=== PATIENT | male | born 2000 | race Caucasian/White ===

== ENCOUNTER 2024-01-16 20:02 | Inpatient (IN) ==
[2024-01-16] MEDS: SODIUM CHLORIDE 0.9% 1,000 ML IV SCH (20:18)
--- NOTE | 2024-01-16 20:37 | Emergency Department Note ---
Impression & Plan DKA, type 1, Atypical chest pain, Nausea, Weakness ED Provider Note Provider: Christopher Estrada MD DATE OF SERVICE: 01/16/2024 CHIEF COMPLAINT: DKA, chest pain HISTORY OF PRESENT ILLNESS: Patient is a 23-year-old gentleman reported history of poorly controlled type 1 diabetes presenting here today complaining of experiencing DKA symptoms as well as experiencing some chest tightness this evening. States he was doing okay this morning. Drove up from [facility] earlier today. Did not have his insulin with him. Only a little bit to eat. Nausea and vomiting and notes his blood sugars are high. Unable to carry insulin locally. Began to experience some chest tightness was different. Has had multiple episodes of DKA in the past year by his report. No fevers. No leg swelling. Was a bit anxious and upset in triage and concern given his chest discomfort. No abdominal pain reported. PAST MEDICAL HISTORY: As noted above MEDICATIONS: Reviewed home medications includes insulin but not a pump SOCIAL HISTORY: Lives in [facility] PHYSICAL EXAM: GENERAL: alert and oriented on stretcher friend at bedside fatigued in appearance Head: normocephalic and atraumatic EYES: No injection, discharge or icterus. EOMI. NECK: Trachea midline. ENT: Mucous membranes pink and slightly dry LUNGS: Airway patent. No retractions. Breath sounds clear with good air entry bilaterally. HEART: Regular tachycardic rate and rhythm. No chest wall tenderness ABDOMEN: Soft and non-tender, without guarding or rebound. SKIN: Acyanotic, warm, dry, without rashes EXTREMITIES: Without swelling, tenderness or deformity in particular no calf swelling or tenderness NEUROLOGICAL: No focal deficits moving all extremity. No aphasia. No facial droop or slurred speech. EK bpm sinus tachycardia with right axis. Mildly peaked T waves. No acute ST segment elevation or depression with a QTc of 441. CONTINUOUS CARDIAC MONITORING: was ordered and showed a heart rate of 70s-120s bpm in normal sinus rhythm sinus tachycardia Patient's laboratory studies and imaging reviewed. Differential includes DKA, infection, dehydration, metabolic abnormality, hypo/hyperglycemia, electrolyte disturbance, anemia, hypoxia, cardiac sources/ACS, PE, neurologic, as well as other pathologies. IMPRESSION/MEDICAL DECISION MAKING: Patient appears to be in monty DKA with elevated blood sugar upon arrival. I- STAT obtained as well as VBG and lactate. EKG completed shows some tachycardia as well as may be some mildly peaked T waves but no priors for comparison. Little bit of chest discomfort. Did drive today but no clinical evidence of DVT on exam. Blood work troponin was completed as well as chest x-ray initially. IV fluid ordered as well as Zofran. I-STAT reports anion gap of 26 and a bicarb of 15. Creatinine normal on this and will send for CT of the chest to exclude PE given his atypical chest pain with presentation today, tachycardia/tachypnea, as well as significant several hour car ride today. Question DKA although VBG returns without significant acidosis pH of 7.39, CO2 of 26, bicarb of 16. Lactate elevated 4.0. Some question if this is still fairly early and the patient is compensating. No significant thrombocytopenia or anemia with leukocytosis of 15.2 notable. Pseudohyponatremia. Normal renal function. No transaminitis or evidence of hepatitis or pancreatitis. Urine negative for signs of infection but with ketones. Significant glucose elevation. Large anion gap. Seems consistent with DKA although not acidotic on his VBG. Continue with insulin drip after bolus as well as IV fluids. Recommend we monitor him overnight for resolution of the symptoms improvement of his fatigue/weakness and nausea. Not having active chest pain. He is in agreement. Hospitalist contacted. DIAGNOSIS: DKAhyperglycemia associated with type 1 diabetes, atypical chest pain, nausea DISPOSITION: Hospitalist will evaluate Patient was agreeable with this plan. Critical Care I have personally spent 35 minutes of critical care time in the direct management of this patient. This includes bedside care, interpretation of diagnostic studies, and testing, discussion with consultants, patient, and other required patient management activities. These 35 minutes is in excess of all separately billable procedures. Past Med/Surg History Social History Smoking Status: Never smoker Preferred Language: Khmer Feels Safe at Home: Yes Allergies Allergies Allergy/AdvReac Type Severity Reaction Status Date / Time No Known Allergies Allergy Unverified 01/16/24 20:35 Home Meds Home Medications Medication Instructions Recorded Confirmed insulin aspart U-100 100 unit/mL 16 unit subcut TIDWMEAL 01/16/24 01/16/24 subcutaneous solution (Novolog U-100 Insulin aspart) insulin degludec 100 unit/mL (3 45 unit subcut HS 01/16/24 01/16/24 mL) subcutaneous pen (Tresiba FlexTouch U-100 insulin) Results & Data (ED) Vital Signs Vital Signs - 24 hr 01/16/24 20:05 01/16/24 20:24 01/16/24 20:35 Temperature 36.8 C Temperature Source Temporal Artery Scan Pulse Rate 134 H 73 Pulse Rhythm Regular Pulse Strength Normal Respiratory Rate 18 Respiratory Effort / Characteristics Non-Labored Spontaneous Respiratory Depth Normal Respiratory Pattern Regular Blood Pressure 125/83 Blood Pressure Mean 97 Blood Pressure Position Sitting Pulse Oximetry 94 Oxygen Delivery Method Room Air Room Air Oxygen Flow Rate 98 Sepsis Recent Fever Within 48 Hours No Sepsis New/Unexplained Change in Mental Status N/A Sepsis Action Taken by Nursing No Action Required Laboratory Data 01/16/24 20:22 01/16/24 20:22 Lab Results 01/16/24 01/16/24 01/16/24 Range/Units 20:14 20:15 20:22 WBC 15.22 H (4.8-10.8) K/ul RBC 5.64 (4.70-6.10) M/uL Hgb 16.6 (14.0-18.0) g/dl POC Hgb (14.0-18.0) g/dl Hct 46.9 (42.0-52.0) % POC Hct (42-52) % MCV 83.2 (80.0-100.0) fL MCH 29.4 (25.0-34.0) pg MCHC 35.4 (32.0-36.0) g/dL RDW Std Deviation 35.2 L (36.4-46.3) fL RDW Coeff of Yuriy 11.7 (11.5-14.5) % Plt Count 302 (130-400) K/uL MPV 12.1 (9.4-12.4) fL Immature Gran % (Auto) 0.5 % Neut % (Auto) 74.0 % Lymph % (Auto) 19.8 % Cass % (Auto) 4.1 % Eos % (Auto) 1.1 % Baso % (Auto) 0.5 % Neut # (Auto) 11.26 H (1.40-6.50) K/uL Lymph # (Auto) 3.02 (1.20-3.40) K/uL Cass # (Auto) 0.63 H (0.11-0.59) K/uL Eos # (Auto) 0.17 (0.00-0.50) K/uL Baso # (Auto) 0.07 (0.00-0.20) K/uL Immature Gran # (Auto) 0.07 (0.01-0.20) K/uL PT 10.3 (9.0-12.0) Seconds INR 0.9 (0.9-1.1) APTT 21 (21-31) Seconds PTT Ratio 0.8 VBG pH (7.36-7.41) VBG pCO2 (38-50) mmHg VBG pO2 mmHg VBG HCO3 mmol/L VBG O2 Saturation % VBG Base Excess mEq/L POC Sodium (135-144) mmol/L Sodium 131 L (136-145) mmol/L POC Potassium (3.3-5.0) mmol/L Potassium 4.0 (3.5-5.1) mmol/L POC Chloride (101-112) mmol/L Chloride 88 L (98-107) mmol/L Carbon Dioxide 15 L (21-32) mmol/L POC Total CO2 (24-31) mmol/L Anion Gap 28 H (3-11) POC Anion Gap (16-25) mmol/L POC BUN (7-18) mg/dl BUN 18 (6-23) mg/dl Creatinine 1.08 (0.6-1.4) mg/dl POC Creatinine (0.6-1.3) mg/dl Est Cr Clr Drug Dosing 116.2 ml/min Est GFR ( Amer) 112.3 ml/min Est GFR (Non-Af Amer) 96.9 ml/min BUN/Creatinine Ratio 16.7 (10-20) Glucose 657 H* (70-99(Fasting)) mg/dl POC Glucose > 600 H* 590 H* (70-99) mg/dl POC Glucose (other) (70-99) mg/dl Estimat Average Glucose 258 mg/dl Hemoglobin A1c 10.6 H (4.5-5.6) % Lactate (0.4-2.0) mmol/L Calcium 9.7 (8.6-10.3) mg/dl POC Ioniz Calcium Karyn (1.12-1.32) mmol/l Magnesium 1.7 (1.7-2.4) mg/dl Total Bilirubin 1.0 (0.2-1.0) mg/dl AST 16 (13-39) U/L ALT 19 (7-52) U/L Alkaline Phosphatase 105 H (34-104) U/L Troponin I High Sens 2.4 (0-20) pg/ml Total Protein 7.4 (6.0-8.3) gm/dl Albumin 4.5 (3.4-5.0) gm/dl Globulin 2.9 (2.5-4.0) gm/dl Albumin/Globulin Ratio 1.6 (0.9-2) Lipase 17 (11-82) U/L Urine Color Urine Appearance (Clear) Urine pH (4.5-7.5) Ur Specific [place] (1.000-1.030) Urine Protein (Negative) Urine Glucose (UA) (Negative) Urine Ketones (Negative) Urine Blood (Negative) Urine Nitrite (Negative) Urine Bilirubin (Negative) Urine Urobilinogen (Negative) Ur Leukocyte Esterase (Negative) 01/16/24 01/16/24 01/16/24 Range/Units 20:37 20:41 20:51 WBC (4.8-10.8) K/ul RBC (4.70-6.10) M/uL Hgb (14.0-18.0) g/dl POC Hgb 15.3 (14.0-18.0) g/dl Hct (42.0-52.0) % POC Hct 45 (42-52) % MCV (80.0-100.0) fL MCH (25.0-34.0) pg MCHC (32.0-36.0) g/dL RDW Std Deviation (36.4-46.3) fL RDW Coeff of Yuriy (11.5-14.5) % Plt Count (130-400) K/uL MPV (9.4-12.4) fL Immature Gran % (Auto) % Neut % (Auto) % Lymph % (Auto) % Cass % (Auto) % Eos % (Auto) % Baso % (Auto) % Neut # (Auto) (1.40-6.50) K/uL Lymph # (Auto) (1.20-3.40) K/uL Cass # (Auto) (0.11-0.59) K/uL Eos # (Auto) (0.00-0.50) K/uL Baso # (Auto) (0.00-0.20) K/uL Immature Gran # (Auto) (0.01-0.20) K/uL PT (9.0-12.0) Seconds INR (0.9-1.1) APTT (21-31) Seconds PTT Ratio VBG pH 7.39 (7.36-7.41) VBG pCO2 26 L (38-50) mmHg VBG pO2 41 mmHg VBG HCO3 16 mmol/L VBG O2 Saturation 72.9 % VBG Base Excess -7.6 mEq/L POC Sodium 131 L (135-144) mmol/L Sodium (136-145) mmol/L POC Potassium 4.0 (3.3-5.0) mmol/L Potassium (3.5-5.1) mmol/L POC Chloride 94 L (101-112) mmol/L Chloride (98-107) mmol/L Carbon Dioxide (21-32) mmol/L POC Total CO2 15 L (24-31) mmol/L Anion Gap (3-11) POC Anion Gap 26.0 H (16-25) mmol/L POC BUN 17 (7-18) mg/dl BUN (6-23) mg/dl Creatinine (0.6-1.4) mg/dl POC Creatinine 0.8 (0.6-1.3) mg/dl Est Cr Clr Drug Dosing ml/min Est GFR ( Amer) ml/min Est GFR (Non-Af Amer) ml/min BUN/Creatinine Ratio (10-20) Glucose (70-99(Fasting)) mg/dl POC Glucose (70-99) mg/dl POC Glucose (other) 621 H* (70-99) mg/dl Estimat Average Glucose mg/dl Hemoglobin A1c (4.5-5.6) % Lactate 4.0 H* (0.4-2.0) mmol/L Calcium (8.6-10.3) mg/dl POC Ioniz Calcium Karyn 1.07 L (1.12-1.32) mmol/l Magnesium (1.7-2.4) mg/dl Total Bilirubin (0.2-1.0) mg/dl AST (13-39) U/L ALT (7-52) U/L Alkaline Phosphatase (34-104) U/L Troponin I High Sens (0-20) pg/ml Total Protein (6.0-8.3) gm/dl Albumin (3.4-5.0) gm/dl Globulin (2.5-4.0) gm/dl Albumin/Globulin Ratio (0.9-2) Lipase (11-82) U/L Urine Color Yellow Urine Appearance Clear (Clear) Urine pH 5.5 (4.5-7.5) Ur Specific [place] 1.030 (1.000-1.030) Urine Protein Negative (Negative) Urine Glucose (UA) 3+ H (Negative) Urine Ketones 4+ H (Negative) Urine Blood Negative (Negative) Urine Nitrite Negative (Negative) Urine Bilirubin Negative (Negative) Urine Urobilinogen Negative (Negative) Ur Leukocyte Esterase Negative (Negative) 01/16/24 Range/Units 22:10 WBC (4.8-10.8) K/ul RBC (4.70-6.10) M/uL Hgb (14.0-18.0) g/dl POC Hgb (14.0-18.0) g/dl Hct (42.0-52.0) % POC Hct (42-52) % MCV (80.0-100.0) fL MCH (25.0-34.0) pg MCHC (32.0-36.0) g/dL RDW Std Deviation (36.4-46.3) fL RDW Coeff of Yuriy (11.5-14.5) % Plt Count (130-400) K/uL MPV (9.4-12.4) fL Immature Gran % (Auto) % Neut % (Auto) % Lymph % (Auto) % Cass % (Auto) % Eos % (Auto) % Baso % (Auto) % Neut # (Auto) (1.40-6.50) K/uL Lymph # (Auto) (1.20-3.40) K/uL Cass # (Auto) (0.11-0.59) K/uL Eos # (Auto) (0.00-0.50) K/uL Baso # (Auto) (0.00-0.20) K/uL Immature Gran # (Auto) (0.01-0.20) K/uL PT (9.0-12.0) Seconds INR (0.9-1.1) APTT (21-31) Seconds PTT Ratio VBG pH (7.36-7.41) VBG pCO2 (38-50) mmHg VBG pO2 mmHg VBG HCO3 mmol/L VBG O2 Saturation % VBG Base Excess mEq/L POC Sodium (135-144) mmol/L Sodium (136-145) mmol/L POC Potassium (3.3-5.0) mmol/L Potassium (3.5-5.1) mmol/L POC Chloride (101-112) mmol/L Chloride (98-107) mmol/L Carbon Dioxide (21-32) mmol/L POC Total CO2 (24-31) mmol/L Anion Gap (3-11) POC Anion Gap (16-25) mmol/L POC BUN (7-18) mg/dl BUN (6-23) mg/dl Creatinine (0.6-1.4) mg/dl POC Creatinine (0.6-1.3) mg/dl Est Cr Clr Drug Dosing ml/min Est GFR ( Amer) ml/min Est GFR (Non-Af Amer) ml/min BUN/Creatinine Ratio (10-20) Glucose (70-99(Fasting)) mg/dl POC Glucose 561 H* (70-99) mg/dl POC Glucose (other) (70-99) mg/dl Estimat Average Glucose mg/dl Hemoglobin A1c (4.5-5.6) % Lactate (0.4-2.0) mmol/L Calcium (8.6-10.3) mg/dl POC Ioniz Calcium Karyn (1.12-1.32) mmol/l Magnesium (1.7-2.4) mg/dl Total Bilirubin (0.2-1.0) mg/dl AST (13-39) U/L ALT (7-52) U/L Alkaline Phosphatase (34-104) U/L Troponin I High Sens (0-20) pg/ml Total Protein (6.0-8.3) gm/dl Albumin (3.4-5.0) gm/dl Globulin (2.5-4.0) gm/dl Albumin/Globulin Ratio (0.9-2) Lipase (11-82) U/L Urine Color Urine Appearance (Clear) Urine pH (4.5-7.5) Ur Specific [place] (1.000-1.030) Urine Protein (Negative) Urine Glucose (UA) (Negative) Urine Ketones (Negative) Urine Blood (Negative) Urine Nitrite (Negative) Urine Bilirubin (Negative) Urine Urobilinogen (Negative) Ur Leukocyte Esterase (Negative) Administered Medications Insulin Human Regular 250 (units/ Sodium Chloride) 250 mls @ 10.2 mls/hr IV .Q24H GARY; Protocol Stop: 02/15/24 20:59 Last Titration: 01/16/24 22:12 Dose: 10.2 units/hr, 10.2 mls/hr Documented By: CALLIE Co-signed By: RUFINA Admin: 01/16/24 21:15 Dose: 8.5 units/hr, 8.5 mls/hr Documented By: CALLIE Co-signed By: STEF Parenteral Electrolytes (Plasma-Lyte A Ph 7.4) 1,000 mls @ 500 mls/hr IV .Q2H ONE Stop: 01/17/24 00:08 Last Admin: 01/16/24 22:18 Dose: 500 mls/hr Documented By: CALLIE Insulin Aspart (Insulin Aspart Per Unit Charge) 0 units SC ACHS GARY Stop: 02/15/24 20:59 Last Admin: 01/16/24 21:32 Dose: Not Given Documented By: CALLIE Co-signed By: JASMIN Discontinued Medications Sodium Chloride (Nss) 1,000 mls @ 999 mls/hr IV .Q1H1M GARY Stop: 01/16/24 21:30 Last Infusion: 01/16/24 21:19 Dose: Infused Documented By: Admin: 01/16/24 20:18 Dose: 999 mls/hr Documented By: JASMIN Parenteral Electrolytes (Plasma-Lyte A Ph 7.4) 1,000 mls @ 125 mls/hr IV .Q8H GARY Stop: 02/15/24 20:44 Last Infusion: 01/16/24 22:18 Dose: Infused Documented By: Admin: 01/16/24 21:03 Dose: 125 mls/hr Documented By: CALLIE Lactated Ringer's (Lr) 1,000 mls @ 999 mls/hr IV .Q1H1M ONE Stop: 01/16/24 21:44 Last Infusion: 01/16/24 22:07 Dose: Infused Documented By: Admin: 01/16/24 21:03 Dose: 999 mls/hr Documented By: CALLIE Ioversol (Optiray 320 125ml) 116 ml IV ONCE ONE Stop: 01/16/24 21:03 Last Admin: 01/16/24 21:02 Dose: 116 ml Documented By: JULIANA Miscellaneous (Stat Iv Infusion Titration Per Protocol) 1 each N/A NOW STA Stop: 01/16/24 20:45 Last Admin: 01/16/24 21:32 Dose: Not Given Documented By: CALLIE Ondansetron HCl (Ondansetron Inj 2 Mg/Ml 2 Ml Vial) 4 mg IV NOW STA Stop: 01/16/24 20:35 Last Admin: 01/16/24 20:50 Dose: 4 mg Documented By: CALLIE Imaging Data Radiologist's Impression: Chest CTA 01/16/24 20:44 Exam(s): CTA CHEST IV Amt: 116ml optiray 320 EXAM: CT Angiography Chest With Intravenous Contrast CLINICAL HISTORY: Reason for exam: PE, travel, CP, DKA/tachy. TECHNIQUE: Axial computed tomographic angiography images of the chest with intravenous contrast. CTDI is 23 mGy and DLP is 503.9 mGy-cm. Automated exposure control was utilized for the study. A dose lowering technique was utilized adhering to the principles of ALARA. MIP reconstructed images were created and reviewed. COMPARISON: No relevant prior studies available. FINDINGS: Pulmonary arteries: Unremarkable. No pulmonary embolism. Aorta: No acute findings. No thoracic aortic aneurysm. Lungs: Unremarkable. No mass. No consolidation. Pleural space: Unremarkable. No significant effusion. No pneumothorax. Heart: Unremarkable. No cardiomegaly. No significant pericardial effusion. No evidence of RV dysfunction. Bones/joints: No acute fracture. No dislocation. Soft tissues: Unremarkable. Lymph nodes: Unremarkable. No enlarged lymph nodes. IMPRESSION: Normal chest CTA. No pulmonary embolism. Electronically signed by: Henry Najera MD 01/16/24 21:17 PM Discharge Plan Visit Data Chief Complaint: Shortness of Breath/Dyspnea Stated Complaint: SOB, NAUSEA/VOMITING, DKA, HIGH BLOOD SUGAR ED Provider: Christopher Estrada Discharge Problem: DKA, type 1, Atypical chest pain, Nausea, Weakness Patient Disposition: Being Evaluated by Hospitalist Forms Stand Alone Forms: [facility] [employer] Prescriptions Prescriptions: No Action insulin aspart U-100 [Novolog U-100 Insulin aspart] 100 unit/mL Solution 16 unit SUBCUT TIDWMEAL insulin degludec [Tresiba FlexTouch U-100] 100 unit/mL (3 mL) Insulin Pen 45 unit subcut HS Rx Instructions: non compliant Referrals Referrals: PCP,NO [Primary Care Provider] -
[2024-01-16 20:44] LABS: Base Excess VBG -7.6 mEq/L; HCO3 VBG 16 mmol/L; Oxygen Saturation VBG 72.9 %; PCO2 VBG 26 mmHg (38-50); PO2 VBG 41 mmHg; pH VBG 7.39 (7.36-7.41)
[2024-01-16] MEDS ORDERED: GLUCOSE 40% GEL 15 GM TUBE PO PRN (20:44)
[2024-01-16] MEDS ORDERED: CARBOHYDRATES FOR HYPOGLYCEMIA PO PRN (20:44)
[2024-01-16] MEDS ORDERED: GLUCOSE 10 TAB/TUBE PO PRN (20:44)
[2024-01-16] MEDS ORDERED: DEXTROSE 50% 50 ML SYRINGE IV PRN (20:44)
[2024-01-16] MEDS ORDERED: GLUCAGON FOR INJ 1 MG VIAL SQ PRN (20:44)
[2024-01-16] MEDS ORDERED: INSULIN REGULAR 250 UNITS in SODIUM CHLORIDE 0.9% 247.5 ML IV SCH (20:45)
[2024-01-16] MEDS: ONDANSETRON INJ 2 MG/ML 2 ML VIAL IV STA (20:50)
[2024-01-16 20:56] LABS: iSTAT Creatinine 0.8 mg/dl (0.6-1.3); iSTAT Hemoglobin 15.3 g/dl (14.0-18.0); iSTAT Ionized Calcium 1.07 mmol/l (1.12-1.32)
[2024-01-16 20:57] LABS: Basophils # (auto) 0.07 K/uL (0.00-0.20); Basophils % (auto) 0.5 %; Eosinophils # (auto) 0.17 K/uL (0.00-0.50); Eosinophils % (auto) 1.1 %; Hematocrit (blood only) 46.9 % (42.0-52.0); Hemoglobin 16.6 g/dl (14.0-18.0); Immature Granulocytes # (auto) 0.07 K/uL (0.01-0.20); Immature Granulocytes % (auto) 0.5 %; Lymphocytes # (auto) 3.02 K/uL (1.20-3.40); Lymphocytes % (auto) 19.8 %; Mean Corpuscular Hemoglobin 29.4 pg (25.0-34.0); Mean Corpuscular Hgb Conc 35.4 g/dL (32.0-36.0); Mean Corpuscular Volume 83.2 fL (80.0-100.0); Mean Platelet Volume 12.1 fL (9.4-12.4); Monocytes # (auto) 0.63 K/uL (0.11-0.59); Monocytes % (auto) 4.1 %; Neutrophils # (auto) 11.26 K/uL (1.40-6.50); Platelet Count 302 K/uL (130-400); RDW Coefficient of Variation 11.7 % (11.5-14.5); RDW Standard Deviation 35.2 fL (36.4-46.3); Red Blood Count 5.64 M/uL (4.70-6.10); White Blood Count 15.22 K/ul (4.8-10.8)
[2024-01-16 21:02] LABS: INR 0.9 (0.9-1.1); Partial Thromboplastin Ratio 0.8; Partial Thromboplastin Time 21 Seconds (21-31); Prothrombin Time 10.3 Seconds (9.0-12.0)
[2024-01-16] MEDS: OPTIRAY 320 125ml IV ONE (21:02)
[2024-01-16] MEDS: LACTATED RINGER'S 1,000 ML IV ONE (21:03)
[2024-01-16] MEDS: PLASMA-LYTE A 1,000 ML IV SCH (21:03)
[2024-01-16] MEDS: INSULIN REGULAR 250 UNITS in SODIUM CHLORIDE 0.9% 247.5 ML IV SCH (21:15)
--- NOTE | 2024-01-16 21:18 | CT Scan Report ---
Exam(s): CTA CHEST IV Amt: 116ml optiray 320 EXAM: CT Angiography Chest With Intravenous Contrast CLINICAL HISTORY: Reason for exam: PE, travel, CP, DKA/tachy. TECHNIQUE: Axial computed tomographic angiography images of the chest with intravenous contrast. CTDI is 23 mGy and DLP is 503.9 mGy-cm. Automated exposure control was utilized for the study. A dose lowering technique was utilized adhering to the principles of ALARA. MIP reconstructed images were created and reviewed. COMPARISON: No relevant prior studies available. FINDINGS: Pulmonary arteries: Unremarkable. No pulmonary embolism. Aorta: No acute findings. No thoracic aortic aneurysm. Lungs: Unremarkable. No mass. No consolidation. Pleural space: Unremarkable. No significant effusion. No pneumothorax. Heart: Unremarkable. No cardiomegaly. No significant pericardial effusion. No evidence of RV dysfunction. Bones/joints: No acute fracture. No dislocation. Soft tissues: Unremarkable. Lymph nodes: Unremarkable. No enlarged lymph nodes. IMPRESSION: Normal chest CTA. No pulmonary embolism. Electronically signed by: Henry Najera MD 01/16/24 21:17 PM
[2024-01-16 21:21] LABS: Albumin Globulin Ratio 1.6 (0.9-2); Albumin Level 4.5 gm/dl (3.4-5.0); BUN Creatinine Ratio 16.7 (10-20); Calcium 9.7 mg/dl (8.6-10.3); Creatinine Clr Calc Pharmacy 116.2 ml/min; Est GFR (African American) 112.3 ml/min; Est GFR (Non-African American) 96.9 ml/min; Globulin 2.9 gm/dl (2.5-4.0); Magnesium 1.7 mg/dl (1.7-2.4); Total Protein 7.4 gm/dl (6.0-8.3); Troponin I High Sensitivity 2.4 pg/ml (0-20)
[2024-01-16] MEDS: STAT IV Infusion **Titration per Protocol STA (21:32)
[2024-01-16] MEDS: INSULIN ASPART PER UNIT CHARGE SC SCH (21:32)
[2024-01-16 21:50] LABS: Appearance Urine Clear (Clear); Bilirubin Urine Negative (Negative); Blood Urine Negative (Negative); Color Urine Yellow; Glucose Urine UA 3+ (Negative); Ketones Urine 4+ (Negative); Leukocyte Esterase Urine Negative (Negative); Nitrite Urine Negative (Negative); Protein Urine Negative (Negative); Urobilinogen Urine Negative (Negative); pH Urine 5.5 (4.5-7.5)
[2024-01-16] MEDS: PLASMA-LYTE A 1,000 ML IV ONE (22:18)
[2024-01-16 22:23] LABS: Estimated Average Glucose 258 mg/dl; Hemoglobin A1C 10.6 % (4.5-5.6)
--- NOTE | 2024-01-16 23:19 | History & Physical Report ---
Date of Service January 16, 2024 Assessment & Plan (1) Hyperglycemic crisis in diabetes mellitus: Plan: HHS/DKA combo History DM1 Medication noncompliance Suboptimal control as of today's hemoglobin A1c of 10.6. Atypical chest pain likely secondary to tachycardia from illness ADHD stable off medications. Ongoing vape use Medical telemetry IVF, IV insulin Diabetic education TTE Re: Chest pain DVT prophylaxis. Lovenox subcu Full code Text document was generated using [employer] voice recognition software. It may contain grammatical or spelling errors. Kindly contact undersigned for clarification of any documentation item in question. History of Present Illness Chief Complaint: Nausea, vomiting, chest pain Primary Care Provider: Dr. Panda from [place], [place] History obtained from patient, family, and records. Medical history significant for DM1, ADHD, ongoing vape use. 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 Patient diagnosed to have type I DM since age 5. Last hemoglobin A1c last month possibly 10 as per patient. Home BSGs 100-300s as per patient. Last confinement for DKA last year. Patient forgot to bring home insulin and supplies when he traveled to [place] to machine operator hop picker his girlfriend. Patient later felt sick with nausea symptoms. Symptoms similar to DKA attacks as per patient. Palpitations with chest pain going to his back. No fever, no chills. Patient had emesis upon arrival at the ER. IV insulin and IVF administered at the ER with initial BG of 600s. Patient currently comfortable. Medical History as above Surgical History : Dental surgery Family History : DM Personal/Social history : Ongoing vape use, occasional intake, restaurant employee Allergies Allergy/AdvReac Type Severity Reaction Status Date / Time No Known Allergies Allergy Unverified 01/16/24 20:35 Home Medications Medication Instructions Recorded Confirmed Type insulin aspart U-100 100 unit/mL 16 unit subcut TIDWMEAL 01/16/24 01/16/24 History subcutaneous solution (Novolog U-100 Insulin aspart) insulin degludec 100 unit/mL (3 45 unit subcut HS 01/16/24 01/16/24 History mL) subcutaneous pen (Tresiba FlexTouch U-100 insulin) Past Med/Surg History Social History Smoking Status: Never smoker Preferred Language: Pakistani Communication Ability: Effective Lands Resource Manager Required: No Beliefs That Will Affect Care: None Current Living Situation: Spouse Other Information That Helps Us Care for You: No Feels Safe at Home: Yes Safety Concerns: Feels Safe At This Time Review of Systems Review of Systems: As per HPI, all other systems reviewed and negative Physical Exam Physical Exam: GENERAL: Comfortable, pleasant, no respiratory distress SKIN: Normal color, warm HEENT: [place] palpebral conjunctivae, no ptosis, dry buccal mucosa NECK : Supple, no tenderness CHEST : CTA, no tenderness HEART : RRR, no obvious murmurs ABDOMEN: Some distention, nontender EXTREMITIES : No LE swelling/tenderness, no other conspicuous deformities noted NEUROLOGIC : Coherent, no facial asymmetry, no other gross focality Results & Data Results & Data Vital Signs (Past 12 Hours) Vital Signs Temp Pulse Resp BP Pulse Ox O2 Del Method O2 Flow Rate 01/16/24 22:30 88 23 132/67 99 01/16/24 20:35 Room Air 98 01/16/24 20:24 77 18 122/52 L 98 01/16/24 20:24 73 01/16/24 20:05 36.8 C 134 H 18 125/83 94 Room Air Laboratory Results Laboratory Results WBC 15.22 K/ul (4.8-10.8) H 01/16/24 20:22 RBC 5.64 M/uL (4.70-6.10) 01/16/24 20:22 Hgb 16.6 g/dl (14.0-18.0) 01/16/24 20:22 POC Hgb 15.3 g/dl (14.0-18.0) 01/16/24 20:41 Hct 46.9 % (42.0-52.0) 01/16/24 20:22 POC Hct 45 % (42-52) 01/16/24 20:41 MCV 83.2 fL (80.0-100.0) 01/16/24 20:22 MCH 29.4 pg (25.0-34.0) 01/16/24 20:22 MCHC 35.4 g/dL (32.0-36.0) 01/16/24 20: RDW Std Deviation 35.2 fL (36.4-46.3) L 01/16/24 20: RDW Coeff of Yuriy 11.7 % (11.5-14.5) 01/16/24 20: Plt Count 302 K/uL (130-400) 01/16/24 20:22 MPV 12.1 fL (9.4-12.4) 01/16/24 20:22 Immature Gran % (Auto) 0.5 % 01/16/24 20: Neut % (Auto) 74.0 % 01/16/24 20:22 Lymph % (Auto) 19.8 % 01/16/24 20:22 [place] % (Auto) 4.1 % 01/16/24 20:22 Eos % (Auto) 1.1 % 01/16/24 20:22 Baso % (Auto) 0.5 % 01/16/24 20: Neut # (Auto) 11.26 K/uL (1.40-6.50) H 01/16/24 20: Lymph # (Auto) 3.02 K/uL (1.20-3.40) 01/16/24 20:22 [place] # (Auto) 0.63 K/uL (0.11-0.59) H 01/16/24 20:22 Eos # (Auto) 0.17 K/uL (0.00-0.50) 01/16/24 20:22 Baso # (Auto) 0.07 K/uL (0.00-0.20) 01/16/24 20: Immature Gran # (Auto) 0.07 K/uL (0.01-0.20) 01/16/24 20: PT 10.3 Seconds (9.0-12.0) 01/16/24 20: INR 0.9 (0.9-1.1) 01/16/24 20: APTT 21 Seconds (21-31) 01/16/24 20: PTT Ratio 0.8 01/16/24: VBG pH 7.39 (7.36-7.41) 01/16/24 20:37 VBG pCO2 26 mmHg (38-50) L 01/16/24 20:37 VBG pO2 41 mmHg 01/16/24 20:37 VBG HCO3 16 mmol/L 01/16/24 20:37 VBG O2 Saturation 72.9 % 01/16/24 20: VBG Base Excess -7.6 mEq/L 01/16/24 20:37 POC Sodium 131 mmol/L (135-144) L 01/16/24 20:41 Sodium 131 mmol/L (136-145) L 01/16/24 20:22 POC Potassium 4.0 mmol/L (3.3-5.0) 01/16/24 20:41 Potassium 4.0 mmol/L (3.5-5.1) 01/16/24 20:22 POC Chloride 94 mmol/L (101-112) L 01/16/24 20:41 Chloride 88 mmol/L (98-107) L 01/16/24 20:22 Carbon Dioxide 15 mmol/L (21-32) L 01/16/24 20:22 POC Total CO2 15 mmol/L (24-31) L 01/16/24 20:41 Anion Gap 28 (3-11) H 01/16/24 20:22 POC Anion Gap 26.0 mmol/L (16-25) H 01/16/24 20:41 POC BUN 17 mg/dl (7-18) 01/16/24 20:41 BUN 18 mg/dl (6-23) 01/16/24 20:22 Creatinine 1.08 mg/dl (0.6-1.4) 01/16/24 20:22 POC Creatinine 0.8 mg/dl (0.6-1.3) 01/16/24 20:41 Est Cr Clr Drug Dosing 116.2 ml/min 01/16/24 20:22 Est GFR ( Amer) 112.3 ml/min 01/16/24 20:22 Est GFR (Non-Af Amer) 96.9 ml/min 01/16/24 20:22 BUN/Creatinine Ratio 16.7 (10-20) 01/16/24 20:22 Glucose 657 mg/dl (70-99(Fasting)) H* 01/16/24 20:22 POC Glucose 374 mg/dl (70-99) H* 01/16/24 23:11 POC Glucose (other) 621 mg/dl (70-99) H* 01/16/24 20:41 Estimat Average Glucose 258 mg/dl 01/16/24 20:22 Hemoglobin A1c 10.6 % (4.5-5.6) H 01/16/24 20:22 Lactate 2.3 mmol/L (0.4-2.0) H* 01/16/24 22:24 Calcium 9.7 mg/dl (8.6-10.3) 01/16/24 20:22 POC Ioniz Calcium Karyn 1.07 mmol/l (1.12-1.32) L 01/16/24 20:41 Magnesium 1.7 mg/dl (1.7-2.4) 01/16/24 20:22 Total Bilirubin 1.0 mg/dl (0.2-1.0) 01/16/24 20:22 AST 16 U/L (13-39) 01/16/24 20:22 ALT 19 U/L (7-52) 01/16/24 20:22 Alkaline Phosphatase 105 U/L (34-104) H 01/16/24 20:22 Troponin I High Sens 2.4 pg/ml (0-20) 01/16/24 20:22 Total Protein 7.4 gm/dl (6.0-8.3) 01/16/24 20:22 Albumin 4.5 gm/dl (3.4-5.0) 01/16/24 20:22 Globulin 2.9 gm/dl (2.5-4.0) 01/16/24 20:22 Albumin/Globulin Ratio 1.6 (0.9-2) 01/16/24 20:22 Lipase 17 U/L (11-82) 01/16/24 20:22 Procalcitonin < 0.02 ng/ml (0-0.5) 01/16/24 20:22 Urine Color Yellow 01/16/24 20:51 Urine Appearance Clear (Clear) 01/16/24 20:51 Urine pH 5.5 (4.5-7.5) 01/16/24 20:51 Ur Specific [place] 1.030 (1.000-1.030) 01/16/24 20:51 Urine Protein Negative (Negative) 01/16/24 20:51 Urine Glucose (UA) 3+ (Negative) H 01/16/24 20:51 Urine Ketones 4+ (Negative) H 01/16/24 20:51 Urine Blood Negative (Negative) 01/16/24 20:51 Urine Nitrite Negative (Negative) 01/16/24 20:51 Urine Bilirubin Negative (Negative) 01/16/24 20:51 Urine Urobilinogen Negative (Negative) 01/16/24 20:51 Ur Leukocyte Esterase Negative (Negative) 01/16/24 20:51 Impressions Chest CTA 01/16/24 20:44 Exam(s): CTA CHEST IV Amt: 116ml optiray 320 EXAM: CT Angiography Chest With Intravenous Contrast CLINICAL HISTORY: Reason for exam: PE, travel, CP, DKA/tachy. TECHNIQUE: Axial computed tomographic angiography images of the chest with intravenous contrast. CTDI is 23 mGy and DLP is 503.9 mGy-cm. Automated exposure control was utilized for the study. A dose lowering technique was utilized adhering to the principles of ALARA. MIP reconstructed images were created and reviewed. COMPARISON: No relevant prior studies available. FINDINGS: Pulmonary arteries: Unremarkable. No pulmonary embolism. Aorta: No acute findings. No thoracic aortic aneurysm. Lungs: Unremarkable. No mass. No consolidation. Pleural space: Unremarkable. No significant effusion. No pneumothorax. Heart: Unremarkable. No cardiomegaly. No significant pericardial effusion. No evidence of RV dysfunction. Bones/joints: No acute fracture. No dislocation. Soft tissues: Unremarkable. Lymph nodes: Unremarkable. No enlarged lymph nodes. IMPRESSION: Normal chest CTA. No pulmonary embolism. Electronically signed by: Henry Najera MD 01/16/24 21:17 PM Diagnostic Findings EKG as per my interpretation : Rate 110, sinus tachycardia, RAD, no ischemia
[2024-01-16] MEDS ORDERED: oxyCODONE HCL IR 5 MG TAB (IMMEDIATE RELEASE) PO PRN (23:21)
[2024-01-16] MEDS ORDERED: PROMETHAZINE HCL 6.25 MG in SODIUM CHLORIDE 0.9% 50 ML IV PRN (23:21)
[2024-01-16] MEDS ORDERED: ACETAMINOPHEN 325 MG TAB PO PRN (23:21)
[2024-01-16] MEDS ORDERED: LORazepam 0.5 MG TAB PO PRN (23:21)
[2024-01-17] MEDS: POTASSIUM CHLORIDE 20 MEQ in LACTATED RINGER'S 1,000 ML IV ONE ×2 (00:04→04:58)
[2024-01-17 01:27] LABS: Anion Gap 13 (3-11); BUN Creatinine Ratio 18.7 (10-20); Blood Urea Nitrogen 14 mg/dl (6-23); Calcium 8.8 mg/dl (8.6-10.3); Carbon Dioxide 23 mmol/L (21-32); Chloride 97 mmol/L (98-107); Creatinine Clr Calc Pharmacy 167.3 ml/min; Est GFR (African American) > 150.0 ml/min; Est GFR (Non-African American) 130.2 ml/min; Glucose 272 mg/dl (70-99(Fasting)); Potassium 3.6 mmol/L (3.5-5.1); Sodium 133 mmol/L (136-145)
[2024-01-17 01:35] LABS: Troponin I High Sensitivity < 2.3 pg/ml (0-20)
[2024-01-17] MEDS: LANTUS PER UNIT CHARGE SQ STA (02:17)
[2024-01-17] MEDS ORDERED: CARBOHYDRATES FOR HYPOGLYCEMIA PO PRN (02:59)
[2024-01-17] MEDS ORDERED: GLUCAGON FOR INJ 1 MG VIAL SQ PRN (02:59)
[2024-01-17] MEDS ORDERED: GLUCOSE 40% GEL 15 GM TUBE PO PRN (02:59)
[2024-01-17] MEDS ORDERED: DEXTROSE 50% 50 ML SYRINGE IV PRN (02:59)
[2024-01-17] MEDS ORDERED: GLUCOSE 10 TAB/TUBE PO PRN (02:59)
[2024-01-17] MEDS: POTASSIUM CHLORIDE PWD 20 MEQ PACK PO STA (03:28)
[2024-01-17 05:59] LABS: Basophils # (auto) 0.06 K/uL (0.00-0.20); Basophils % (auto) 0.7 %; Eosinophils # (auto) 0.23 K/uL (0.00-0.50); Eosinophils % (auto) 2.5 %; Hematocrit (blood only) 39.5 % (42.0-52.0); Hemoglobin 14.3 g/dl (14.0-18.0); Immature Granulocytes # (auto) 0.03 K/uL (0.01-0.20); Immature Granulocytes % (auto) 0.3 %; Lymphocytes # (auto) 3.09 K/uL (1.20-3.40); Lymphocytes % (auto) 33.6 %; Mean Corpuscular Hemoglobin 29.7 pg (25.0-34.0); Mean Corpuscular Hgb Conc 36.2 g/dL (32.0-36.0); Mean Corpuscular Volume 82.1 fL (80.0-100.0); Mean Platelet Volume 11.1 fL (9.4-12.4); Monocytes # (auto) 0.68 K/uL (0.11-0.59); Monocytes % (auto) 7.4 %; Neutrophils % (auto) 55.5 %; Platelet Count 212 K/uL (130-400); RDW Coefficient of Variation 11.7 % (11.5-14.5); RDW Standard Deviation 34.5 fL (36.4-46.3); Red Blood Count 4.81 M/uL (4.70-6.10); White Blood Count 9.19 K/ul (4.8-10.8)
[2024-01-17 06:10] LABS: BUN Creatinine Ratio 15.9 (10-20); Calcium 8.2 mg/dl (8.6-10.3); Creatinine Clr Calc Pharmacy 153.1 ml/min; Est GFR (African American) 145.5 ml/min; Est GFR (Non-African American) 125.5 ml/min; Potassium 3.3 mmol/L (3.5-5.1)
[2024-01-17] MEDS ORDERED: PHARMACY GLYCEMIC MGMT CONSULT PRN (08:03)
[2024-01-17] MEDS: ENOXAPARIN INJ 40 MG/0.4 ML SYR SQ SCH (08:38)
[2024-01-17] MEDS: POTASSIUM CHLORIDE CRTAB 20 MEQ TABCR PO ONE (08:39)
[2024-01-17] MEDS: INSULIN ASPART PER UNIT CHARGE SC SCH (08:52)
[2024-01-17] MEDS ORDERED: LANTUS PER UNIT CHARGE SQ SCH ×2 (09:00→21:00)
--- NOTE | 2024-01-17 11:57 | Pharmacy Report ---
Pharmacy Glycemic Short Note 2 - Date of Service January 17, 2024 - Glycemic Short BSG Results (Last 24 hours): 01/16/24 01/16/24 01/16/24 20:14 20:15 20:22 Glucose 657 H* POC Glucose > 600 H* 590 H* POC Glucose (other) 01/16/24 01/16/24 01/16/24 20:41 22:10 23:11 Glucose POC Glucose 561 H* 374 H* POC Glucose (other) 621 H* 01/17/24 01/17/24 01/17/24 00:16 00:44 01:12 Glucose 272 H POC Glucose 257 H 224 H POC Glucose (other) 01/17/24 01/17/24 01/17/24 02:15 03:29 04:54 Glucose POC Glucose 192 H 158 H 150 H POC Glucose (other) 01/17/24 01/17/24 01/17/24 05:28 07:02 08:46 Glucose 196 H POC Glucose 160 H 151 H POC Glucose (other) 01/17/24 11:33 Glucose POC Glucose 183 H POC Glucose (other) OUTPATIENT ANTIDIABETIC REGIMEN: * Tresiba 45 units SQ HS * NovoLog 16units TID with meals * A1c 10.6% 01/16/24 ASSESSMENT: * 23 yo M, Type 1 DM since age 5, medication noncompliance, admitted w/ mixed DKA/HHS + CP. Patient started on IV insulin briefly last night, discontinued and started Lantus 25 units at 0200 today. AG 9 CO2 28. K 3.3. * Will give one time dose of Lantus now with lunch, then BID, similar to home dosing for TDD, and titrate to goal BSG. PLAN FOR INPATIENT GLYCEMIC CONTROL: * Basal insulin * Lantus 20 units x 1 dose today at lunch, then 25 units SQ BID starting HS * Bolus insulin * NovoLog per scale ACHS or Q6hrs while NPO * Goal Range: Low 110 mg/dL - High 140 mg/dL * Correction Factor: 20 mg/dL/unit * Nutritional / Prandial insulin per carb ratio of 1 unit per 7 grams CHO consumed
[2024-01-17] MEDS: LANTUS PER UNIT CHARGE SC ONE (12:03)
--- NOTE | 2024-01-17 15:55 | Hospitalist Progress Note ---
Date of Service January 17, 2024 Assessment & Plan (1) Hyperglycemic crisis in diabetes mellitus: Plan: Diabetic ketoacidosis H/O Type 1 DM Likely due to Medication Non Compliance HbA1C: 10.6 Anion gap closed Bicarbonate levels normalized IV insulin transition to SQ Continue insulin per protocol Appreciate glycemic pharmacist help Patient will require NovoLog pen on discharge pump servicer consulted Leukocytosis Likely secondary to DKA No obvious source of infection Resolved Hypokalemia Replete electrolytes as needed Monitor Atypical chest pain likely secondary to tachycardia Normal troponin Echo showed no wall motion abnormality Resolved ADHD stable off medications. Ongoing vape use DVT Px: Lovenox SQ Code Status Full code Admission and Anticipated Discharge Date Admission Date: January 16, 2024 Subjective Patient is seen and examined at bedside States feeling much better today Denies any nausea, vomiting, chest pain, resolved Also denies chest pain, dyspnea, abd pain No new complaints Admits to intermittently miss taking insulin Review of Systems Review of Systems: All systems reviewed & are unremarkable except as noted in Subjective Physical Exam Physical Exam: Physical Exam: Vitals signs as noted above General Appearance:Moderately built and nourished, no apparent distress Head: normocephalic, Atraumatic Eyes: normal inspection, EOMI Neck: supple, Trachea midline Respiratory/Chest: Normal breath sounds, CTA, No accessory muscle use Cardiovascular: S1, S2, No murmur Abdomen/GI:Soft, Non tender, Bowel sounds present Extremities/Musculoskeletal:normal inspection, no edema Neurologic/Psych:AAOX3, grossly no focal neurological deficits Skin: normal color, warm Results & Data Results & Data Vital Signs (Past 12 Hours) Vital Signs Pulse Pulse Resp BP Pulse Ox O2 Del Method 01/17/24 15:40 91 H 01/17/24 14:00 77 17 96/74 L 98 Room Air 01/17/24 12:10 86 17 96/61 L 97 Room Air 01/17/24 09:00 67 14 118/78 97 Room Air 01/17/24 07:34 68 12 129/65 98 Room Air 01/17/24 06:57 70 01/17/24 04:55 70 18 106/66 95 Room Air Laboratory Results Short CBC 01/16/24 01/17/24 Range/Units 20:22 05:28 WBC 15.22 H 9.19 (4.8-10.8) K/ul Hgb 16.6 14.3 (14.0-18.0) g/dl Hct 46.9 39.5 L (42.0-52.0) % Plt Count 302 212 (130-400) K/uL BMP 01/16/24 01/17/24 01/17/24 20:22 00:44 05:28 Sodium 131 L 133 L 138 Potassium 4.0 3.6 3.3 L Chloride 88 L 97 L 101 Carbon Dioxide 15 L 23 28 BUN 18 14 13 Creatinine 1.08 0.75 D 0.82 Glucose 657 H* 272 H 196 H Calcium 9.7 8.8 8.2 L Liver Function 01/16/24 Range/Units 20:22 Total Bilirubin 1.0 (0.2-1.0) mg/dl AST 16 (13-39) U/L ALT 19 (7-52) U/L Alkaline Phosphatase 105 H (34-104) U/L Albumin 4.5 (3.4-5.0) gm/dl Urine 01/16/24 Range/Units 20:51 Urine Color Yellow Urine Appearance Clear (Clear) Urine pH 5.5 (4.5-7.5) Ur Specific [place] 1.030 (1.000-1.030) Urine Protein Negative (Negative) Urine Glucose (UA) 3+ H (Negative)
[2024-01-18] MEDS ORDERED: INSULIN ASPART 100 UNITS/ML VIAL SC SCH
--- NOTE | 2024-01-18 04:11 | Electrocardiogram Report ---
Test Reason : Blood Pressure : / mmHG Vent. Rate : 110 BPM Atrial Rate : 110 BPM P-R Int : 126 ms QRS Dur : 090 ms QT Int : 326 ms P-R-T Axes : 074 125 065 degrees QTc Int : 441 ms Sinus tachycardia Right axis deviation Possible Lateral infarct Abnormal ECG No previous ECGs available Confirmed by Ben Moraes ([id number]) on 01/18/2024 4:10:23 AM Referred By: REFERRED SELF Confirmed By:Ben Moraes
[2024-01-18 07:12] LABS: Hematocrit (blood only) 40.6 % (42.0-52.0); Hemoglobin 14.4 g/dl (14.0-18.0); Mean Corpuscular Hemoglobin 29.9 pg (25.0-34.0); Mean Corpuscular Hgb Conc 35.5 g/dL (32.0-36.0); Mean Corpuscular Volume 84.2 fL (80.0-100.0); Mean Platelet Volume 11.2 fL (9.4-12.4); Platelet Count 186 K/uL (130-400); RDW Coefficient of Variation 11.8 % (11.5-14.5); RDW Standard Deviation 35.8 fL (36.4-46.3); Red Blood Count 4.82 M/uL (4.70-6.10); White Blood Count 6.29 K/ul (4.8-10.8)
[2024-01-18 07:14] LABS: BUN Creatinine Ratio 17.9 (10-20); Calcium 8.3 mg/dl (8.6-10.3); Creatinine Clr Calc Pharmacy 160.9 ml/min; Est GFR (African American) 148.5 ml/min; Est GFR (Non-African American) 128.1 ml/min; Magnesium 1.6 mg/dl (1.7-2.4); Potassium 3.5 mmol/L (3.5-5.1)
[2024-01-18] MEDS: MAGNESIUM SULFATE / D5W 1 GM/100 ML BAG IV SCH (09:06)
[2024-01-18] MEDS: LANTUS PER UNIT CHARGE SQ SCH (09:06)
--- NOTE | 2024-01-18 10:37 | Discharge Summary ---
Date of Service January 18, 2024 Admission HPI Per Admitting Provider History obtained from patient, family, and records. Medical history significant for DM1, ADHD, ongoing vape use. Patient is a resident of [place], [place] who arrived in town today to roller picker his girlfriend who was visiting a friend. Patient diagnosed to have type I DM since age 5. Last hemoglobin A1c last month possibly 10 as per patient. Home BSGs 100-300s as per patient. Last confinement for DKA last year. Patient forgot to bring home insulin and supplies when he traveled to [place] to roller picker his girlfriend. Patient later felt sick with nausea symptoms. Symptoms similar to DKA attacks as per patient. Palpitations with chest pain going to his back. No fever, no chills. Patient had emesis upon arrival at the ER. IV insulin and IVF administered at the ER with initial BG of 600s. Patient currently comfortable. Medical History as above Surgical History : Dental surgery Family History : DM Personal/Social history : Ongoing vape use, occasional intake, restaurant employee Admission Exam Per Admitting Provider GENERAL: Comfortable, pleasant, no respiratory distress SKIN: Normal color, warm HEENT: [place] palpebral conjunctivae, no ptosis, dry buccal mucosa NECK : Supple, no tenderness CHEST : CTA, no tenderness HEART : RRR, no obvious murmurs ABDOMEN: Some distention, nontender EXTREMITIES : No LE swelling/tenderness, no other conspicuous deformities noted NEUROLOGIC : Coherent, no facial asymmetry, no other gross focality Principal Diagnosis Diabetic Ketoacidosis Discharge Exam Constitutional + well hydrated; no acute distress Eyes PERRL, conjunctivae normal, anicteric sclerae ENMT external ear and nose normal, oropharynx normal Respiratory normal respiratory effort, lungs clear to auscultation Cardiovascular RRR, no murmur, no edema Gastrointestinal (Abdomen) normal bowel sounds, soft, nontender, no hepatosplenomegaly Musculoskeletal no cyanosis or clubbing, extremities motor strength 5/5 Neurologic PERRL, EOMI, accommodation nl, no face palsy, no dysarthria Psychiatric A+Ox3, euthymic affect Discharge Data Allergies Allergy/AdvReac Type Severity Reaction Status Date / Time No Known Allergies Allergy Unverified 01/16/24 20:35 Consultations 01/16/24 21:56 ED Decision to Admit Stat Ordered Studies 01/16/24 20:44 CT angio chest PE protocol Stat Hospital Course (1) Hyperglycemic crisis in diabetes mellitus: Diabetic ketoacidosis H/O Type 1 DM Due to Medication Non Compliance HbA1C: 10.6 Patient reports he had been missing his novolog He is from [place] and came here for graduation but forgot his insulin at home in [facility]. DKA was managed with IVF and insulin and resolved Provided diabetes education Counseled on need for medication adherence No changes made to home regimen at this time Considering patient is heading back to [facility] today, discussed with Pharm who will provide some novolog for patient to use enroute He stated he has his insulin at home. Leukocytosis Likely secondary to DKA No obvious source of infection Resolved Hypokalemia Repleted Atypical chest pain likely secondary to tachycardia Normal troponin Echo showed no wall motion abnormality Resolved ADHD stable off medications. Ongoing vape use Total Time Total Time Spent Total Time Spent (In Minutes): 40 Total Time Includes: Examination of the Patient, Discharge Planning and Medication Reconciliation Discharge Plan Discharge Items Patient Disposition: Home - Self-Care Reason For Visit: HYPERGLYCEMIC CRISIS, CP; PRIVATE RM PER REQ Discharge Diagnosis: Diabetic ketoacidosis Activity: Resume your previous activity Non-emergency contact: Primary Care Provider Call non-emergency contact if: you have any medication questions Follow-up/Referrals: PCP,NO [Primary Care Provider] - Diet: Carb Count or DM1 Addtl Attending Provider Instructions: Mr Valladares You were brought to the hospital and managed for diabetic ketoacidosis Please ensure you take your insulin as recommended It is very important that you follow up with your Primary Doctor. it was a pleasure taking care of you. Addtl Manager Helpdesk Provider Instructions: DIABETES RECOMMENDATIONS: - Given you already received long-acting insulin this morning, your next dose of Tresiba will be morning. Thereafter find the time of day that works best for you. - As you already know, diabetes sucks! - Given there are no vacation days, the goal is to try to make living with type 1 diabetes a little easier. A few recommendations: - Talk with your provider about transitioning you to Dexcom G7 CGM. You can get the sensors thru your local pharmacy. There is no transmitter. - Try to find the best time of day to take the Tresiba where you can 100% guarentee you will get it. - Goal with Novolog is finding the right timing (~10-15 minutes before meals) and amount (adjusting dose for small, usual, large meals vs. may consider working towards carb counting). - Would consider discussing insulin pump options with your provider. Feel this would make life with type 1 diabetes a little easier. All newer pumps talk with a continuous glucose monitor and provide more/less insulin thru the day/as needed. - If you have any questions, please call our diabetes office anytime at [phone]. Take Care! Pending Studies at Discharge: No Stand-Alone Forms: My [facility], Smoking Cessation Medications and DC Order Prescriptions: Continued insulin aspart U-100 [Novolog U-100 Insulin aspart] 100 unit/mL Solution 16 unit SUBCUT TIDWMEAL insulin degludec [Tresiba FlexTouch U-100] 100 unit/mL (3 mL) Insulin Pen 45 unit subcut HS Rx Instructions: non compliant Discharge Orders: Discharge Order (Routine); Ordered 01/18/24 Ordered By: Sonal Agudelo/Other Patient Handouts: Managing Type 1 Diabetes, Diabetic Ketoacidosis Admission Data Admit Date/Time: 01/16/24 23:20 Attending Provider: Sonal Olvera I. Admit Provider: Mane Silva Primary Care Provider: PCP,NO Other Providers: Mane Silva; Yemi Bass Other Interventions: Discharge Summary Assessment (RN) Last Done: 01/18/24 11:18
== END 2024-01-18 13:58 | disposition home or self-care (01) | DRG 639 ==
LOC: ED 20:02 → EDINP 23:20 → SUATTDRO 23:20 → 2N 23:50